=== PATIENT | male | born 2000 | race Caucasian/White ===

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

== ENCOUNTER 2025-02-26 11:13 | Outpatient (CLI) | payer BC, SELFPAY ==
--- NOTE | 2025-02-26 11:21 | XR_ITS ---
WS: [id number] Left wrist, 3 views, 02/26/2025 Clinical Data: NUMBNESS AND TINGLING IN LEFT ARM Comparison: None. Findings: No fractures or dislocations are seen. The carpal bones are intact. There is no soft tissue swelling. The distal radius and ulna are not remarkable. XR/XR wrist LT min 3V* [id number] Impression: Negative left wrist.
== END 2025-02-26 11:14 | disposition home or self-care (01) ==
PROVIDERS: PCP Psychiatry & Neurology Psychiatry; Visit Provider Nurse Practitioner Family
DX: R20.2 Paresthesia of skin (principal); R60.0 Localized edema
CPT/HCPCS: 73110